=== PATIENT | male | born 1995 | race Caucasian/White ===

== ENCOUNTER 2019-11-29 15:28 | Emergency (ER) | payer SELFPAY ==
[2019-11-29 16:13] VITALS: BP 156/79; PULSE 94; RESP 16; TEMP 39.2; O2SAT 99
--- NOTE | 2019-11-29 16:30 | ED.URI ---
HPI - URI/Sore Throat General Chief Complaint: Upper Respiratory Infection Stated Complaint: Cold/Flu Time Seen by Provider: 11/29/19 16:30 Source: patient and family History of Present Illness HPI Narrative: Patient presents with fever headache generalized body aches and diarrhea for 2 days. Patient also states he has chest congestion and sore throat. No trouble swallowing no drooling. Related Data Allergies Allergy/AdvReac Type Severity Reaction Status Date / Time No Known Allergies Allergy Verified 11/29/19 16:25 Review of Systems Review of Systems: Narrative: CONSTITUTIONAL: Denies fever, chills, or sweats. EYES: Denies visual changes, redness, or discharge. ENT: Sore throat fever cough chest congestion nasal congestion CARDIOVASCULAR: Denies chest pain, palpitations, or edema. RESPIRATORY: Denies cough or dyspnea. GASTROINTESTINAL: Denies abdominal pain, nausea, vomiting, or diarrhea. GENITOURINARY: Denies dysuria or hematuria. SKIN: Denies rash or itching. MUSCULOSKELETAL: Denies back pain, joint pain, or myalgia. NEUROLOGIC: Denies headache, numbness, or weakness. PSYCHIATRIC: Denies anxiety or depression. PMFSH Comments At time of signature, agree with nursing past medical, surgical, social and family history. There is no relevant family history pertinent to the presenting complaint Exam Narrative: Exam Narrative: GENERAL: Well-appearing, well-nourished, and in no acute distress. HEAD: Normocephalic, atraumatic. EYES: PERRLA and EOMI. ENT: Nares clear, no rhinorrhea or epistaxis. Mucous membranes moist. NECK: Supple. CHEST: Clear to auscultation. No respiratory distress. HEART: Regular rate and rhythm. No murmur heard. Normal peripheral pulses. ABDOMEN: Soft, nontender, nondistended, normal active bowel sounds. EXTREMITIES: Normal range of motion. No edema. SKIN: Warm, dry, no rash. NEURO: No focal deficits. Alert and oriented x3. Diana Coma Scale Eye Opening: Spontaneous 4 Diana Coma Scale Motor: Obeys Commands 6 Diana Coma Scale Verbal: Oriented 5 Diana Coma Scale Total 15 Course Vital Signs Vital signs: Vital Signs Temperature 39.2 C H 11/29/19 16:13 Pulse Rate 94 11/29/19 16:13 Respiratory Rate 16 11/29/19 16:13 Blood Pressure 156/79 H 11/29/19 16:13 Pulse Oximetry 99 11/29/19 16:13 Temperature 39.2 C H 11/29/19 16:13 Pulse Rate 94 11/29/19 16:13 Respiratory Rate 16 11/29/19 16:13 Blood Pressure 156/79 H 11/29/19 16:13 Pulse Oximetry 99 11/29/19 16:13 Please KAMILAH schedule a followup visit with your personal physician for further evaluation and treatment. Including recheck and discussion of your blood pressure. If your symptoms persist, change or worsen significantly before you can contact your personal physician then please, without delay, go to the emergency department for further evaluation MDM - URI/Sore Throat Differential Diagnosis Differential diagnosis: Likely upper respiratory infection, croup, otitis media, sinusitis, viral infection, bronchitis, influenza, pharyngitis and other Lab Data Labs: Influenza A Screen Negative Reference Range: Negative Influenza B Screen Positive Reference Range: Negative Strep Screen Presumptive Negative *(Reference Range: Negative)* Critical Care Time Critical Care Time Critical Care Time: No Discharge Plan Discharge Clinical Impression: Influenza Patient Disposition: Home, Self-Care Condition: Stable Instructions: Antibiotic Form Additional Instructions: Stay home - protect others by not exposing them. You are a public health risk if you have the flu. Don't go into public unless necessary. - Wash your hands, cover your cough/sneeze. - Stay hydrated - sip on things frequently. Water, tea, diluted lemon juice, and bone broth are all good choices. Eat if it sounds good, if not, just keep drinking - Vitamin C, Zinc, Echinacea m
== END 2019-11-29 16:40 | disposition home or self-care (01) ==
PROVIDERS: Emergency Provider Nurse Practitioner Family
DX: J11.1 Influenza due to unidentified influenza virus with other respiratory manifestations (principal)
CPT/HCPCS: 87081; 87804; 87880; 99203; G0463